=== PATIENT | female | born 1960 | race Caucasian/White ===

== ENCOUNTER 2019-01-15 20:34 | Emergency (ER) | payer OTHER ==
[~2019-01-15] VITALS: Ht 167.6 cm; Wt 72.6 kg
[2019-01-15 20:50] VITALS: Ht 167.6 cm; Wt 72.6 kg
[2019-01-15 21:40] VITALS: BP 128/50
== END 2019-01-15 21:40 | disposition home or self-care (01) ==
LOC: ED 20:34
DX: M79.671 Pain in right foot (principal)

== ENCOUNTER → 2019-03-24 | Outpatient (CLI) | payer OTHER | END | disposition home or self-care (01) | LOC: RD 14:28 | DX: M89.8X7 Other specified disorders of bone, ankle and foot (principal) ==